=== PATIENT | female | born 1980 | race Caucasian/White ===

== ENCOUNTER 2021-09-10 15:39 | Outpatient (CLI) | payer BC, OTHER ==
--- NOTE | 2021-09-10 16:50 | XRAY Report ---
PROCEDURE: Ankle 3 View RT INDICATIONS: PAINFUL R ANKLE TECHNIQUE: 3 views of the ankle were acquired. COMPARISON: None. FINDINGS: Bones: No acute fractures or dislocations. Ankle mortise is normally aligned. No suspicious bony l esions. Areas of trabecular is seen in the posterior calcaneus. Small plantar calcaneal enthesophyte . Soft tissues: Achilles tendon stripe appears to be intact. No suspicious soft tissue calcification. IMPRESSION: No acute osseous abnormality. If symptoms persist or there is continued clinical concern , further evaluation with MRI or CT may be helpful. Reviewed by: Kevin Torres MD on 09/10/2021 4:49 PM PST Approved by: Kevin Torres MD on 09/10/2021 4:49 PM PST Station ID: [id number]
--- NOTE | 2021-09-10 17:22 | XRAY Report ---
PROCEDURE: Foot 3 View LT INDICATIONS: L FOOT PAIN, 1ST MP JOINT TECHNIQUE: 3 calcaneal spurring. views of the foot were acquired. COMPARISON: Not available. FINDINGS: Bones: No fractures or dislocations. No suspicious bony lesions. Mild bunion. Mild first tarsophal angeal joint degeneration. Bipartite medial sesamoid. Soft tissues: No tibiotalar joint effusion. Achilles tendon appears normal. IMPRESSION: 1. Mild bunion and mild first metatarsophalangeal joint degeneration. Reviewed by: Julio Alexander MD on 09/10/2021 5:21 PM PST Approved by: Julio Alexander MD on 09/10/2021 5:21 PM PST Station ID: [id number]
== END 2021-09-10 15:40 | disposition home or self-care (01) ==
LOC: DI 15:39
PROVIDERS: ATTEND Podiatrist
DX: M19.072 Primary osteoarthritis, left ankle and foot (principal); M21.612 Bunion of left foot